=== PATIENT | female | born 1995 | race Caucasian/White ===

== ENCOUNTER 2019-07-11 19:58 | Emergency (ER) | payer OTHER, MEDICAID ==
[~2019-07-11] VITALS: Ht 172.7 cm; Wt 79.4 kg
[~2019-07-11 19:58] MED LIST: ABILIFY; AMOXICILLIN 50500 M1 PO; ANTIANXIETY MED; AZITHROMYCIN 2250 MG PO; BIRTH CONTROL; HYDROXYZINE HCL10 M1 PO; IBUPROFEN 600600 M1 PO; MACROBID 100 M100 M1 PO; PREDNISONE 20 M20 M1 PO; PROZAC 20 MG20 MG PO; PROZAC20 MG PO; ROBAXIN 750 MG750 M1 PO; SPRINTEC1 EACH PO; TRINATE TABLET1 TAB PO; VENTOLIN HFA 1818 GM INH; VIGAMOX3 ML OP; ZOFRAN ODT4 MG SUBLING
[2019-07-11] MEDS ORDERED: IBU600 MG PO (21:30)
[2019-07-11] MEDS ORDERED: ULTRAM50 MG PO (21:32)
[2019-07-11 21:37] VITALS: BP 117/58
== END 2019-07-11 21:39 | disposition home or self-care (01) ==
LOC: M.ERS 19:58
DX: S60.012A Contusion of left thumb without damage to nail, initial encounter (principal); Z88.1 Allergy status to other antibiotic agents; X58.XXXA Exposure to other specified factors, initial encounter; Y93.89 Activity, other specified; Y92.89 Other specified places as the place of occurrence of the external cause; Y99.8 Other external cause status

== ENCOUNTER 2019-11-15 21:19 | Emergency (ER) | payer OTHER, MEDICAID ==
[~2019-11-15] VITALS: Ht 172.7 cm; Wt 81.7 kg
[~2019-11-15 21:19] MED LIST changes: +IBU600 MG PO; +ULTRAM50 MG PO
[2019-11-15 21:52] LABS: URINE BILIRUBIN NEGATIVE (Negative); URINE BLOOD NEGATIVE (Negative); URINE CLARITY CLEAR; URINE COLOR YELLOW; URINE GLUCOSE-RANDOM NEGATIVE (Negative); URINE KETONES NEGATIVE (Negative); URINE LEUKOCYTES-REFLEX NEGATIVE (Negative); URINE NITRITE-REFLEX NEGATIVE (Negative); URINE PROTEIN NEGATIVE (Negative); URINE SPECIFIC GRAVITY 1.025 (1.005-1.030); URINE UROBILINOGEN 0.2 E.U./dl (0.2-1.0)
[2019-11-15] MEDS ORDERED: HYDROCODON-ACE1 EAC8 PO (23:24)
[2019-11-16] MEDS ORDERED: ZOFRAN ODT4 MG PO (00:31)
[2019-11-16] MEDS ORDERED: HYDROCODON-ACE1 EAC8 PO (00:31)
[2019-11-16 00:43] VITALS: BP 125/79
== END 2019-11-16 01:11 | disposition home or self-care (01) ==
LOC: M.ERS 21:19
PROVIDERS: Emergency Medicine
DX: S06.0X0A Concussion without loss of consciousness, initial encounter (principal); J45.909 Unspecified asthma, uncomplicated; Y04.0XXA Assault by unarmed brawl or fight, initial encounter; Y93.89 Activity, other specified; Y92.89 Other specified places as the place of occurrence of the external cause; Y99.9 Unspecified external cause status